=== PATIENT | female | born 1980 | race Caucasian/White ===

== ENCOUNTER → 2018-11-30 | Outpatient (CLI) | payer OTHER ==
--- NOTE | 2018-11-30 13:34 | Diagnostic Imaging Report ---
INDICATION: survey. TECHNIQUE: Multiple real-time grayscale images were obtained over the gravid uterus. COMPARISON: None. FINDINGS: There is a single live fetus in a cephalic presentation. heart rate was recorded at 170 beats per minute. The placenta is posterior. The amniotic fluid volume is normal. kidneys, bladder and stomach are unremarkable. brain is unremarkable. There is a four-chambered heart. There is a three-vessel cord with normal insertion. The spine is unremarkable. Biometrical measurements are as follows: Biparietal 4.81 cm, age 20 weeks 4 days. Head circumference 18.00 cm, age 20 weeks 4 days. Abdominal circumference 15.18 cm, age 20 weeks 3 days. Femur length 3.09 cm, age 19 weeks 5 days. Sonographic estimate age: 20 weeks 3 days. Sonographic estimated date of delivery: 04/16/2019. Estimated Weight: 331 gm (+/- 48 gm). LMP percentile: 75%. heart rate: 170 beats per minute. number: 1 of 1. IMPRESSION: Single live IUP approximately 20 weeks 3 days' gestational age. The estimated date of confinement sonographically is 04/16/2019. Dictated by: Dictated on workstation # [id number]
== END ==
LOC: RAD 11:21
PROVIDERS: ATTEND Obstetrics & Gynecology
DX: Z36.89 Encounter for other specified antenatal screening (principal); Z3A.20 20 weeks gestation of pregnancy
CPT/HCPCS: 76805

== ENCOUNTER 2019-01-09 12:33 | Outpatient (CLI) | payer OTHER ==
[~2019-01-09] VITALS: Ht 165.1 cm; Wt 79.6 kg
--- NOTE | 2019-01-09 12:23 | NUR ---
BENJAMIN SAMS presented to unit via AMBULATORY from HOME, with c/o FALL. BENJAMIN SAMS weighed, gowned, voided, and to bed. EFHM and TOCO applied, VS taken. BENJAMIN SAMS oriented to bed controls, call light, TV, heat, and A/C controls.
[2019-01-09 12:30] VITALS: BP 107/59
--- NOTE | 2019-01-09 13:00 | NUR ---
DR. WELLER ON UNIT, STRIP REVIEWED, ORDERS RECEIVED TO D/C PT HOME.
[2019-01-09] MEDS ORDERED: PREN-37 PO (13:11)
--- NOTE | 2019-01-09 13:12 | NUR ---
REFER TO LABOR FLOW SHEET.
--- NOTE | 2019-01-09 13:21 | NUR ---
DISCHARGE PAPERS PROVIDED AND REVIEWED WITH PT, PT VERBALIZES UNDERSTANDING AND DENIES ANY QUESTIONS AT THIS TIME. PAPER SIGNED.
--- NOTE | 2019-01-09 13:25 | NUR ---
PT DISCHARGED FROM [facility] TO [facility]IA AMBULATORY IN STABLE CONDITION.
--- NOTE | 2019-01-10 15:00 | Physician Query-Final Dx ---
BENNY CALDERON 01/10/19 1500: Final Diagnosis Give Final Diagnosis Please give Final Diagnosis Dr Weller Please give a diagnosis and include the weeks of gestation thank you ERVIN WELLER DO 01/10/19 1604: Final Diagnosis Give Final Diagnosis 25 weeks decreased movement of fetus BENNY CALDERON Jan 10, 2019 15:00 ERVIN WELLER DO Jan 10, 2019 16:04
== END 2019-01-09 13:25 | disposition home or self-care (01) ==
LOC: LDRP 12:33 → WSo 12:33
PROVIDERS: ATTEND Obstetrics & Gynecology
DX: O36.8120 Decreased fetal movements, second trimester, not applicable or unspecified (principal); Z3A.25 25 weeks gestation of pregnancy
CPT/HCPCS: 99212

== ENCOUNTER 2019-04-18 17:35 | Inpatient (IN) | payer OTHER ==
[2019-04-18] VITALS (26 sets, daily range): BP systolic 96–136; BP diastolic 54–86
[~2019-04-18] VITALS: Ht 165.1 cm; Wt 83.0 kg
[~2019-04-18 17:35] MED LIST: PREN-37 PO
--- NOTE | 2019-04-18 17:40 | NUR ---
BENJAMIN SAMS presented to unit from Home, accompanied by Significant Other, with c/o LABOR. BENJAMIN SAMS weighed, gowned, voided, and to bed. EFHM and TOCO applied, VS taken. BENJAMIN SAMS oriented to bed controls, call light, TV, heat, and A/C controls.
--- OUTSIDE RECORDS SUMMARY | 2019-04-18 17:43 | XMS REPORT | Continuity of Care Document ---
Author [facility]. [facility]. Address Unknown Phone Unavailable Care Team Providers Care Transportation Aide Name Role Phone Unavailable Unavailable Insurance Providers Payer Name Policy Number Subscriber Name [id number] BENJAMIN SAMS SELF / SAME PATIENT Chief Complaint and Reason for Visit Reason for Visit EDC 08/26/2015 Problems No Known Problems or Medical conditions. Medications Medication Dose Route Sig Days/Qty Instructions Order Date Discontinued Date Status Estradiol ( Control Pills) TDM 1 TAB TRANSDERMAL 02/18/09 Discontinued Vitamins 1 TAB TAB 1 TAB ORAL Active Calcium Carbonate (Tums) TAB.CHEW 1 As needed 02/18/09 08/17/15 Discontinued Ibuprofen (Motrin) 600 MG TABLET 600 MG ORAL Every six hours PRN Pain 30 Qty 08/17/15 Active Social History Query Response Start Date Stop Date Smoking status: Never smoker Hospital Discharge Instructions Plan of Care Problem: Pain Goal: Minimize pain Instructions: CONTINUE PAIN MEDS PRESCRIBED Plan of Care Discharge Date 08/18/15 11:45am Disposition HOME, SELF-CARE or ASST LIVING Prescriptions See Medications Section Functional Status No functional status results. Allergies, Adverse Reactions, Alerts Allergen Type Severity Reaction Status Last Updated No Known Allergies Allergy Unknown Active 08/16/15 Immunizations No Known History of Immunizations. Vital Signs Vital Reading Collection Date/Time Result Blood Pressure 08/18/15 8:25am 104/65 Blood Pressure Source 08/18/15 8:25am SI Patient Temperature 08/18/15 8:25am 97.8 Temperature Source 08/18/15 8:25am O Respiratory Rate 08/18/15 8:25am 16 Pulse Rate 08/18/15 8:25am 80 Pulse Location 08/18/15 8:25am DYN Height 08/16/15 7:33pm 165.1 cm Height 08/16/15 7:33pm 5 ft 5 in Weight 08/16/15 7:33pm 82.3 kg Weight 08/16/15 7:33pm 181.0 lb Body Mass Index 08/16/15 7:33pm 30.2 Procedures No Known History of Procedures. Results Test Source Date Result Interp. Ref. Range Comments Band Neutrophils % 08/16/15 37 % H 0 - 10 Differential Pathologist's Review 08/16/15 NO - Differential Total Cells Counted 08/16/15 100 - Hematocrit 08/16/15 35.3 % L 37.0 - 47.0 Hemoglobin 08/16/15 12.0 g/dl L 12.5 - 16.0 Lymphocytes 08/16/15 4 % L 20.0 - 51.0 Mean Corpuscular Hemoglobin 08/16/15 30 pg 27.0 - 31.0 Mean Corpuscular Hemoglobin Concent 08/16/15 34 g/dl 33.0 - 37.0 Mean Corpuscular Volume 08/16/15 89 fl 80.0 - 100.0 Mean Platelet Volume 08/16/15 10.8 fl H 7.4 - 10.4 Monocytes % (Manual) 08/16/15 1.0 % L 1.7 - 9.3 Neutrophils % (Manual) 08/16/15 58 % 42.0 - 75.2 Platelet Count 08/16/15 222 K/mm3 130 - 400 Red Blood Count 08/16/15 3.99 M/mm3 L 4.10 - 5.30 Red Cell Distribution Width 08/16/15 13.1 % 11.5 - 14.5 White Blood Count 08/16/15 20.3 K/mm3 H 4.8 - 10.8 Critical Value called to LEONOR RAE who read back the results. Called by NENA ALBARRAN at [phone] Encounters Encounter Location Date/Time Discharged Inpatient [facility] 08/18/15 11:45am
--- OUTSIDE RECORDS SUMMARY | 2019-04-18 17:43 | XMS REPORT | Continuity of Care Document ---
Author Organization Unknown Address Unknown Phone Unavailable Allergies Active Description Code Type Severity Reaction Onset Reported/Identified Relationship to Patient Clinical Status Yes No Known Allergies NKA Miscellaneous Allergy Unknown N/A 08/16/2015 Medications There is no data. Problems Date Dx Coded Attending Type Code Diagnosis Diagnosed By 08/18/2015 Gurdeep Law N85.8 08/18/2015 Gurdeep Law O34.21 08/18/2015 Gurdeep Law O70.1 08/18/2015 AniGurdeep Z37.0 08/18/2015 Gurdeep Law Z3A.38 01/09/2019 ERVIN WELLER DO Ot O36.8120 DECREASED MOVEMENTS, SECOND TRIMES 01/09/2019 ERVIN WELLER DO Ot Z3A.25 25 WEEKS GESTATION OF 01/09/2019 Ot Z36.89 ENCOUNTER FOR OTHER SPECIFIED 01/09/2019 Ot Z3A.20 20 WEEKS GESTATION OF Procedures Code Description Performed By Performed On [id number] 08/16/2015 [id number] 08/16/2015 Results There is no data. Encounters ACCT No. Visit Date/Time Discharge Status Pt. Type Provider Facility Loc./Unit Complaint [id number] 08/16/2015 19:05:00 08/18/2015 11:45:00 DIS Inpatient Gurdeep Law [facility] OB [id number] 01/09/2019 12:33:00 01/09/2019 13:25:00 DIS Outpatient ERVIN WELLER DO [facility] FALL [id number] 11/30/2018 11:21:00 Document Registration
--- NOTE | 2019-04-18 17:44 | NUR ---
IV started, see intervention.
--- NOTE | 2019-04-18 17:46 | NUR ---
Dr. Chino notified of patients arrival and exam. En route to hospital.
[2019-04-18] MEDS ORDERED: SUFENTA 0.6MCG/ML BUPIVA 0.125 100 ML ONE (17:56)
[2019-04-18 18:06] LABS: BASOPHILS % (AUTO) 0 % (0-10); EOSINOPHILS # (AUTO) 0.1 10^3/uL (0.0-0.3); EOSINOPHILS % (AUTO) 0 % (0-10); HEMATOCRIT 36 % (35-52); LYMPHOCYTES # (AUTO) 1.5 X 10^3 (1.0-4.0); LYMPHOCYTES % (AUTO) 11 % (12-44); MEAN CORPUSCULAR HEMOGLOBIN 29 PG (25-34); MEAN CORPUSCULAR HGB CONC 33 G/DL (32-36); MEAN CORPUSCULAR VOLUME 88 FL (80-99); MEAN PLATELET VOLUME 10.4 FL (7.4-10.4); MONOCYTES % (AUTO) 8 % (0-12); NEUTROPHILS # (AUTO) 10.8 X 10^3 (1.8-7.8); NEUTROPHILS % (AUTO) 81 % (42-75); PLATELET COUNT 279 10^3/uL (130-400); RED CELL DISTRIBUTION WIDTH 13.7 % (10.0-14.5); WHITE BLOOD COUNT 13.4 10^3/uL (4.3-11.0)
[2019-04-18] MEDS ORDERED: MINERAL OIL CONCENTRATE 99.9% 15 ML UDC TOP PRN (18:30)
[2019-04-18] MEDS ORDERED: OXYTOCIN/NORMAL SALINE 500 ML IV ONE (18:30)
[2019-04-18] MEDS ORDERED: LIDOCAINE 1% INJ 20 ML 20 ML VIAL INJ PRN (18:30)
[2019-04-18] MEDS ORDERED: LIDOCAINE/EPI 2% 1:200,00 (XYLOCAINE) 10 ML VIAL ONE (18:32)
[2019-04-18] MEDS: D5 LR IV SOLUTION 1,000 ML IV SCH (18:58)
--- NOTE | 2019-04-18 19:00 | NUR ---
REFER TO LABOR FLOW SHEET.
[2019-04-18] MEDS ORDERED: BUPIVACAINE 0.25% 30 ML (SENSORCAINE) VIAL ONE (19:22)
[2019-04-18] MEDS ORDERED: fentaNYL INJECTION 100 MCG/2 ML AMP ONE (19:22)
--- NOTE | 2019-04-18 19:35 | NUR ---
Luke Holt CRNA here for epidural placement. Procedure explained, consent reviewed and signed by anesthesia. Questions answered to patient's satisfaction. Time out taken to verify correct patient/procedure. Patient up to side of bed, assisted into sitting position. Betadine prep done x3 and sterile drape applied. Local done, see anesthesia record. Test dose given, see anesthesia record for drug and dosage. Epidural catheter secured in place. Epidural placement complete. Assisted back into bed, monitors adjusted. Epidural dosed, see anesthesia record. Epidural of Sufenta/Bupvicaine @ 12cc/hr stated per pump. Patient tolerated procedure well.
[2019-04-18] MEDS ORDERED: LACTATED RINGERS 1,000 ML IV ONE ×2 (19:39→19:59)
[2019-04-18] MEDS ORDERED: CATHETER FLUSH 10 ML SYR IV PRN (20:00)
[2019-04-18] MEDS ORDERED: EPIDURAL (SUFENTA 0.6MCG/ML BUPIVA 0.125%) 100 ML BAG EPI SCH (20:00)
[2019-04-18] MEDS ORDERED: NALOXONE 0.4 MG/ML 1 ML (NARCAN) VIAL IV PRN (20:00)
[2019-04-18] MEDS ORDERED: OXYTOCIN/NORMAL SALINE 500 ML IV SCH (21:07)
--- NOTE | 2019-04-18 21:13 | OB Labor & Delivery Record ---
Vag Delivery Note Vag Delivery Note Date of Delivery: 04/18/19 Preoperative Diagnosis: Amelia Fermin is a 38 /Para 4 / 3,Gestational Age 39 3/7 weeks in labor. Previous section with two successful for TOLAC Postoperative Diagnosis: Same Surgeon: ERVIN WELLER Anesthesia: epidural Delivery Type: vaginal Findings: Viable male , apgars 7/9, weight pending, thin meconium Lacerations: none Intact placenta with 3 vessel cord. No nuchal cord, body cord or shoulder dystocia Estimated Blood Loss: 150 ml Complications: None Condition: Stable Description of Procedure: The patient is a 38 year old female who presented in labor for TOLAC. She was admitted and informed consent was obtained. Her labor course was remarkable for AROM. She progressed to complete dilatation and began to push. She was then set up for delivery. The infant's head was delivered atraumatically in the CÉSAR position. The shoulders and remainder of the infant's body were then delivered without difficulty. Upon delivery, the head was held below the level of the perineum and the mouth and nares were bulb suctioned. The cord was doubly clamped and cut and the was handed off to the pediatric staff. An intact placenta with 3-vessel cord delivered via Yuliya and there was found to be minimal bleeding.~ Vigorous fundal massage was performed and the fundus was found to be firm. IV oxytocin was given. Examination of the vagina and perineum revealed no laceration. Following the repair, sponge, instrument and needle counts were correct. Mom and baby were both in stable condition in the labor suite. Vitals - Labs Vital Signs - I&O Vital Signs Date Time Temp Pulse Resp B/P (MAP) Pulse Ox O2 Delivery O2 Flow Rate FiO2 04/18/19 18:34 98.0 04/18/19 17:52 97.8 84 18 128/61 (83) Room Air Labs Laboratory Tests 04/18/19 17:59: White Blood Count 13.4H, Red Blood Count 4.12L, Hemoglobin 12.0, Hematocrit 36, Mean Corpuscular Volume 88, Mean Corpuscular Hemoglobin 29, Mean Corpuscular Hemoglobin Concent 33, Red Cell Distribution Width 13.7, Platelet Count 279, Mean Platelet Volume 10.4, Neutrophils (%) (Auto) 81H, Lymphocytes (%) (Auto) 11L, Monocytes (%) (Auto) 8, Eosinophils (%) (Auto) 0, Basophils (%) (Auto) 0, Neutrophils # (Auto) 10.8H, Lymphocytes # (Auto) 1.5, Monocytes # (Auto) 1.0, Eosinophils # (Auto) 0.1, Basophils # (Auto) 0.0 ERVIN WELLER DO Apr 18, 2019 21:13
[2019-04-18] MEDS ORDERED: MEASLES,MUMPS,RUBELLA 1 EA INJ SQ ONE (21:15)
[2019-04-18] MEDS ORDERED: WITCH HAZEL(TUCKS) 40 EA JAR TOP PRN (21:15)
[2019-04-18] MEDS ORDERED: BENZOCAINE/MENTHOL (DERMOPLAST) 56 ML CAN TP PRN (21:15)
[2019-04-18] MEDS ORDERED: TETANUS,DIPTH,PERTUSS P/F (BOOSTRIX) 0.5 ML VIAL IM ONE (21:15)
[2019-04-18] MEDS ORDERED: CATHETER FLUSH 10 ML SYR IV SCH (22:00)
[2019-04-18] MEDS: IBUPROFEN 600 MG (MOTRIN) TAB PO SCH (22:56)
--- NOTE | 2019-04-18 23:20 | NUR ---
Pt. transferred to PP room 311 via wheelchair, accompanied by staff, , and . Pt. oriented to room, call light, room service, and thermostat. info packet and ice water provided. No questions or concerns voiced at this time. Will continue to monitor.
[2019-04-19] MEDS: ACETAMINOPHEN 500 MG TAB (TYLENOL) PO SCH ×4 (00:21→23:54)
[2019-04-19 03:40] VITALS: BP 88/50
[2019-04-19] MEDS: D5 LR IV SOLUTION 1,000 ML IV SCH (03:55)
[2019-04-19] MEDS: IBUPROFEN 600 MG (MOTRIN) TAB PO SCH ×3 (05:19→20:06)
[2019-04-19 05:29] LABS: BASOPHILS % (AUTO) 0 % (0-10); EOSINOPHILS % (AUTO) 0 % (0-10); HEMATOCRIT 32 % (35-52); HEMOGLOBIN 10.4 G/DL (11.5-16.0); LYMPHOCYTES # (AUTO) 2.3 X 10^3 (1.0-4.0); LYMPHOCYTES % (AUTO) 18 % (12-44); MEAN CORPUSCULAR HEMOGLOBIN 29 PG (25-34); MEAN CORPUSCULAR HGB CONC 33 G/DL (32-36); MEAN CORPUSCULAR VOLUME 88 FL (80-99); MEAN PLATELET VOLUME 10.5 FL (7.4-10.4); MONOCYTES # (AUTO) 1.2 X 10^3 (0.0-1.0); MONOCYTES % (AUTO) 10 % (0-12); NEUTROPHILS # (AUTO) 8.8 X 10^3 (1.8-7.8); NEUTROPHILS % (AUTO) 71 % (42-75); PLATELET COUNT 209 10^3/uL (130-400); RED CELL DISTRIBUTION WIDTH 13.7 % (10.0-14.5); WHITE BLOOD COUNT 12.4 10^3/uL (4.3-11.0)
[2019-04-19 07:30] VITALS: BP 97/66
[2019-04-19] MEDS: DOCUSATE SODIUM 100 MG (COLACE) CAP PO SCH ×2 (07:41→20:06)
[2019-04-19] MEDS: PRENATAL VITAMIN 1 EA TAB PO SCH (07:41)
[2019-04-19] MEDS: FERROUS SULF 325 MG (IRON) TAB PO SCH (07:41)
--- NOTE | 2019-04-19 10:10 | NUR ---
report received from MICHAEL Centeno. care assumed of pt.
[2019-04-19] MEDS ORDERED: ACET-77 PO (13:05)
[2019-04-19] MEDS ORDERED: IBUP-844 PO (13:05)
--- NOTE | 2019-04-19 13:06 | Discharge Inst-Women's Service ---
Discharge Inst-Women's Serv Depart Medication/Instructions New, Converted or Re-Newed RX: Transmitted to Pharmacy Final Diagnosis previous section previous labor vaginal delivery/ epidural Problems Reviewed?: Yes Consults/Follow Up Additional Follow Up: Yes Activity Activity: Activity as Tolerated Driving Instructions: You May Drive NO SMOKING: NO SMOKING Nothing Inside Vagina: No Douching, No Magna, No Tampons Diet Discharge Diet: No Restrictions Symptoms to Report to : Swelling Increased, Bleeding Excessive, Pain Increased, Fever Over 101 Degrees F, Vaginal Bleeding Increase, Cramps in Feet or Legs, Vaginal Discharge Foul For Any Problems or Questions: Contact Your Physician ERVIN WELLER DO Apr 19, 2019 13:06
[2019-04-19 13:50] VITALS: BP 94/59
--- NOTE | 2019-04-19 13:50 | NUR ---
stork meal served.
--- NOTE | 2019-04-19 19:23 | NUR ---
report given to MICHAEL Rubalcava.
[2019-04-19 20:05] VITALS: BP 93/60
[2019-04-20 02:30] VITALS: BP 107/65
[2019-04-20] MEDS: IBUPROFEN 600 MG (MOTRIN) TAB PO SCH ×2 (02:36→08:52)
[2019-04-20] MEDS: ACETAMINOPHEN 500 MG TAB (TYLENOL) PO SCH (08:52)
[2019-04-20] MEDS: FERROUS SULF 325 MG (IRON) TAB PO SCH (08:52)
[2019-04-20] MEDS: DOCUSATE SODIUM 100 MG (COLACE) CAP PO SCH (08:52)
[2019-04-20] MEDS: PRENATAL VITAMIN 1 EA TAB PO SCH (08:52)
[2019-04-20 08:53] VITALS: BP 114/70
--- NOTE | 2019-04-20 08:53 | NUR ---
initial shift assessment completed, see interventions for further. POC reviewed, states understanding.
--- NOTE | 2019-04-20 09:05 | NUR ---
Matti Huffman here. dismissal orders received.
--- NOTE | 2019-04-20 09:22 | Postpartum Progress Note ---
Note Note Day # 2 s/p Subjective: Patient is without complaints. Ambulating, voiding. Tolerating a regular diet w ithout nausea or vomiting. Normal lochia. Pain is well controlled with oral pain medications. breast feeding. Objective: 04/20/19 02:30 Temp 97.7 Pulse 72 Resp 16 B/P (MAP) 107/65 (79) Pulse Ox 100 O2 Delivery Room Air Laboratory Tests Test 04/18/19 17:59 04/19/19 05:15 Range/Units White Blood Count 13.4 H 12.4 H 4.3-11.0 10^3/uL Red Blood Count 4.12 L 3.57 L 4.35-5.85 10^6/uL Hemoglobin 12.0 10.4 L 11.5-16.0 G/DL Hematocrit 36 32 L 35-52 % Mean Corpuscular Volume 88 88 80-99 FL Mean Corpuscular Hemoglobin 29 29 25-34 PG Mean Corpuscular Hemoglobin Concent 33 33 32-36 G/DL Red Cell Distribution Width 13.7 13.7 10.0-14.5 % Platelet Count 279 209 130-400 10^3/uL Mean Platelet Volume 10.4 10.5 H 7.4-10.4 FL Neutrophils (%) (Auto) 81 H 71 42-75 % Lymphocytes (%) (Auto) 11 L 18 12-44 % Monocytes (%) (Auto) 8 10 0-12 % Eosinophils (%) (Auto) 0 0 0-10 % Basophils (%) (Auto) 0 0 0-10 % Neutrophils # (Auto) 10.8 H 8.8 H 1.8-7.8 X 10^3 Lymphocytes # (Auto) 1.5 2.3 1.0-4.0 X 10^3 Monocytes # (Auto) 1.0 1.2 H 0.0-1.0 X 10^3 Eosinophils # (Auto) 0.1 0.0 0.0-0.3 10^3/uL Basophils # (Auto) 0.0 0.0 0.0-0.1 10^3/uL Physical Exam: General - Alert and oriented, no apparent distress Abdomen - Soft, appropriately tender to palpation, non-distended, fundus firm at umbilicus Extremities - no edema, negative Princess's bilaterally Assessment: 1. post- day # 2, status post spontaneous vaginal delivery/ Recovering well, hemodynamically stable Plan: Routine care. Encourage breast feeding. Encourage ambulation. Ferrous sulfate supplementation. Plan for discharge Vitals - Labs Vital Signs - I&O Vital Signs Date Time Temp Pulse Resp B/P (MAP) Pulse Ox O2 Delivery O2 Flow Rate FiO2 04/20/19 02:30 97.7 72 16 107/65 (79) 100 Room Air 04/19/19 20:05 98.0 72 16 93/60 (71) 100 Room Air 04/19/19 13:50 98.0 70 18 94/59 (71) 99 Room Air ERVIN WELLER DO Apr 20, 2019 09:22
[2019-04-20 10:25] VITALS: BP 114/70
--- NOTE | 2019-04-20 10:25 | NUR ---
dismissal instructions given, verbalizes understanding. reviewed dismissal Rx's and follow up appointment. signature page signed, placed on chart.
--- NOTE | 2019-04-20 10:30 | NUR ---
up to shower.
--- NOTE | 2019-04-20 12:15 | NUR ---
pt ambulated to private vehicle with this RN, and @ side. secured in rear facing car seat. pt stable with no sx's of distress noted.
== END 2019-04-20 12:15 | disposition home or self-care (01) | DRG 807 ==
LOC: LDRP 17:35
PROVIDERS: ADMIT Obstetrics & Gynecology; ATTEND Obstetrics & Gynecology
PROC: 10E0XZZ Delivery of Products of Conception, External Approach (ICD-10-PCS; principal; 2019-04-18)
DX: O34.211 Maternal care for low transverse scar from previous cesarean delivery (principal); O77.0 Labor and delivery complicated by meconium in amniotic fluid; Z37.0 Single live birth; Z3A.39 39 weeks gestation of pregnancy
CPT/HCPCS: 36415; 85025; 86850; 86900; 86901; 99212

== ENCOUNTER → 2020-01-04 | Outpatient (CLI) | payer OTHER ==
[~2020-01-04] MED LIST changes: +ACET-78 PO; +IBUP-844 PO
[2020-01-04 11:24] LABS: BILIRUBIN,URINE NEGATIVE (NEGATIVE); CLARITY,URINE CLEAR; COLOR,URINE YELLOW; GLUCOSE, URINE (UA) NEGATIVE (NEGATIVE); KETONES,URINE NEGATIVE (NEGATIVE); LEUKOCYTE ESTERASE ,URINE NEGATIVE (NEGATIVE); NITRITE,URINE NEGATIVE (NEGATIVE); PROTEIN,URINE NEGATIVE (NEGATIVE)
[2020-01-04 11:32] LABS: BACTERIA,URINE NEGATIVE /HPF; SQUAMOUS EPITHELIAL CELL,UR RARE /HPF
[2020-01-04 11:41] LABS: PROTEIN URINE MG/DL 11 MG/DL (6-12)
[2020-01-04 12:05] LABS: PROTEIN 24 HOUR URINE 156 MG/24H (0-149); TOTAL VOLUME,URINE 1425 ML
== END ==
LOC: LAB 11:12
PROVIDERS: ATTEND Internal Medicine Nephrology
DX: R80.9 Proteinuria, unspecified (principal)
CPT/HCPCS: 81000; 82043; 84156